=== PATIENT | male | born 1980 | race Caucasian/White ===

== ENCOUNTER 2021-04-29 14:13 | Outpatient (CLI) | payer BC, SELFPAY ==
--- NOTE | 2021-04-29 14:24 | US_ITS ---
WS: [id number] TESTICULAR ULTRASOUND HISTORY: UNDESCENDED TESTICLE/PELVIC PAIN IN MALE, remote injury LEFT testicle. COMPARISON: None available. TECHNIQUE: Real-time and color Doppler imaging or utilized to perform a testicular ultrasound. Right testicle: 5.0 cm x 2.9 cm x 2.3 cm. Normal size and echogenicity. No mass or torsion. Normal color Doppler is present throughout. Systolic and diastolic velocities are both present. No significant hydrocele. Right epididymis: Simple cysts associated with the RIGHT epididymis measures 0.9 x 1.7 x 1.4 cm. No i ncreased vascularity. Left testicle: 3.9 cm x 3.0 cm x 1.4 cm. Small atrophic testicle is within the inguinal canal. There is no significant amount of vascularity t he testicle. Very small amount of peripheral flow is identified. There is no edema. This is an abnorm al testicle and correlates with prior trauma and history. No significant hydrocele. Left epididymis: Normal epididymis with no increased vascularity. US/US scrotum [id number] IMPRESSION: 1. Small LEFT testicle is within the inguinal canal. Very limited color Dopple r. Patient describes remote injury to the LEFT testicle. Do not believe this is an acute torsion. There is no edema or enlargement of the testicle. Changes wi thin the LEFT testicle probably due to prior injury with prior ischemic event. 2. Normal RIGHT testicle. 3. Small RIGHT epididymal cyst.
== END 2021-04-29 14:14 | disposition home or self-care (01) ==
PROVIDERS: PCP Registered Nurse; Visit Provider Registered Nurse
DX: Q53.9 Undescended testicle, unspecified (principal); N50.3 Cyst of epididymis
CPT/HCPCS: 76870

== ENCOUNTER → 2021-05-30 07:50 | Outpatient (BNVA) | payer BC, SELFPAY | PROVIDERS: PCP Registered Nurse; Visit Provider Urology | DX: Q53.112 Unilateral inguinal testis (principal); Z20.822 Contact with and (suspected) exposure to COVID-19 | CPT/HCPCS: 87635 ==

== ENCOUNTER 2021-06-05 13:05 | Day surgery (SDC) | payer BC, SELFPAY ==
[2021-06-04 12:02] VITALS: BMI 25.4
[2021-06-05] VITALS (10 sets, daily range): BP systolic 133–154; BP diastolic 77–91; PULSE 62–78; RESP 14–17; TEMP 36.5–37.1; O2SAT 96–99
[2021-06-05] MEDS: sodium chloride 0.9% 1,000 ML 30 ML IV (14:30)
[2021-06-05] MEDS: vancomycin 1,000 MG in sodium chloride 0.9% 250 ML 250 MG IV (15:22)
--- NOTE | 2021-06-05 15:22 | P.OP_ITS ---
Operative Report Date of procedure: June 05, 2021 Pre-op Diagnosis: Left inguinal testicle Post-op diagnosis: same Procedure Done: 1. Left inguinal orchiectomy Specimens removed/disposition: Left testicle Pathology: Left testicle Surgeon: Steff Anesthesia: General Estimated blood loss: Less than 10 cc Urine output: Not measured Complications: None Findings: Testicle in the superficial inguinal pouch. The inguinal canal did not have to be formally opened. Condition: stable Disposition: PACU Brief History: Rigo is a 40-year-old white male with a very interesting history of a traumatic injury with multiple orthopedic injuries as well as trauma to the genital area while bull riding at a much younger age. After beginning recovery from his injuries he noticed that his left testicle which had been clearly in his scrotum up to the point was now in the inguinal canal. He was unable to manually push it down into the scrotum and it is remained in that position ever since. He does noticed historically increased discomfort with bending and twisting and leaning over but that discomfort has increased. Ultrasound was performed to confirm the location of the testicle with no other gross pathology identified. He requested orchiectomy. Procedure: After routine preoperative evaluation examination and obtaining of informed consent he was taken to the operating suite on 06/05/2021 where general anesthesia was administered without difficulty after appropriate timeout was performed, SCDs confirmed to be functioning, preoperative antibiotics administered, beta-lisa code called confirmed. Prepped and draped in usual sterile fashion in supine position paying careful attention to avoiding pressure points. A LEFT inguinal incision was made in the skin crease and incision was taken down through skin and subcutaneous tissue and the testicle was identified in the area of the superficial inguinal pouch. It was below the external ring. The tunica vaginalis was opened and the testicle was delivered. The cord was exposed with retraction and dissected free from the surrounding tissues. It was into 2 packets and both were clamped, divided, and doubly ligated. There is no evidence of a hernia. Testicle sent for pathologic evaluation. Wound was irrigated meticulous hemostasis was obtained via electrocautery. Wound was closed with 3-0 Vicryl for the subcutaneous fat layer and then the skin edges were approximated with 4- 0 Vicryl subcuticular fashion. Dermabond was applied. The wound was infiltrated with 0.5% Marcaine prior to closure. A ilioinguinal nerve block was performed as well. After the Dermabond dried a sterile dressing was applied. Tolerated procedure well without complications and was awakened in the operating room and returned to the recovery room in stable condition. PLANS: 1. Anticipate discharge from outpatient surgery 2. Follow-up in about 6 weeks for postop check
--- NOTE | 2021-06-05 15:22 | W.PM.OPSUD ---
Surgery/Procedure H&P Update DATE OF PROCEDURE: June 05, 2021 DATE H&P PERFORMED: 05/27/21 H&P UPDATE INFORMATION: I have reviewed H&P completed within last 30 days, I have examined patient prior to procedure, No changes to prior documentation and [place] [facility] [place] PREOP DIAGNOSIS: Left inguinal testicle PLANNED PROCEDURE: Operation Date: 06/05/21 14:30 Proposed Procedures p Inguinal Orchiectomy 81022 Q53.112(Left) - Rick Artis MD
[2021-06-05] MEDS: fentaNYL 50 mcg/mL INJ 2mL IVP ×2 (16:26→16:31)
--- NOTE | 2021-06-05 16:30 | ANE.PACU2 ---
Inpatient post-anesthesia follow up: Airway intact: Yes Vital signs: Temperature 98.8 F Pulse Rate 73 Respiratory Rate 16 Blood Pressure 143/90 Pulse Oximetry 97 Oxygen Delivery Me thod Room Air Oxygen Flow Rate Fraction of Inspir ed Oxygen Hydration adequate: Yes Nausea and vomiting: No Pain level: 2 Mental status: Baseline
== END 2021-06-05 17:35 | disposition home or self-care (01) ==
PROVIDERS: PCP Registered Nurse; Visit Provider Urology
PROC: (CPT 54520; principal; 2021-06-05 14:30)
DX: Q53.112 Unilateral inguinal testis (principal); Z87.891 Personal history of nicotine dependence
CPT/HCPCS: 54520; 88304; J1100; J1170; J2405; J2704; J3010; J3370; J3490; J7030; J7050

== ENCOUNTER 2022-06-24 10:10 | Emergency (ER) | payer BC, SELFPAY ==
[2022-06-24 10:37] VITALS: BP 156/70; PULSE 52; RESP 14; TEMP 36.9; O2SAT 97; BMI 24.3
--- NOTE | 2022-06-24 11:27 | ED_ITS ---
HPI - Eye Problem General: Chief complaint: Eye Problems Stated complaint: Bump on eye Time Seen by Provider: 06/24/22 11:27 History of Present Illness: Mr. Das is a 41-year-old male without reported significant past medical history presents to the emergency department due to swelling of the right eyelid. He reports noticing a bump a few days ago without known mechanism and starting yesterday had increased swelling. He denies associated visual symptoms, eye pain, or any other generalized symptoms. Intensity is mild. Course has persisted. No other specific changes in health, exacerbating, or alleviating factors identified. Onset (ago): day(s) Location: right eye Mechanism: none Associated symptoms: Reports no associated symptoms Review of Systems General: Reports: 10 or more systems reviewed and unremarkable except in HPI and below PFSH ED PFSH: Family History Other CAD (coronary artery disease) Cancer Diabetes Social History Smoking and tobacco status: former smoker Alcohol intake: never Marital status: Current occupational status: employed Physical Exam Const: COMMON NORMALS: alert GENERAL APPEARANCE: cooperative and well developed HENMT: COMMON NORMALS: normocephalic and atraumatic HEAD & SCALP: normocephalic and atraumatic Eye: COMMON NORMALS: Equal, round and reactive pupils present, EOMs intact bilaterally, conjunctivae normal and no scleral icterus VISUAL ACUITY: Yes acuity normal CONJUNCTIVA: Yes conjunctivae normal SCLERA: sclerae normal PUPIL: Yes Equal, round and reactive pupils present OTHER: small papule and region of erythema/induration of right upper eyelid Neck/C-Spine: COMMON NORMALS: supple GENERAL: Yes trachea midline Resp: COMMON NORMALS: clear to auscultation bilaterally EFFORT & INSPECTION: Yes able to speak in complete sentences AUSCULTATION: clear to auscultation bilaterally Cardio: COMMON NORMALS: regular rate and regular rhythm RATE: regular rate RHYTHM: regular rhythm GI: COMMON NORMALS: Soft to palpation PALPATION: Yes Soft to palpation and No Tenderness to palpation present (GI) PERCUSSION: normal to percussion Extremity: GENERAL: Yes normal exam except as noted and No edema Neuro: COMMON NORMALS: moves all extremities SENSORIUM/ORIENTATION: Yes alert and No Orientation impaired Psych: COMMON NORMALS: mental status grossly normal and Normal thought process present THOUGHT PROCESS: Normal thought process present Course Vital Signs: Vital signs: Vital Signs Temperature 98.5 F 06/24/22 10:37 Pulse Rate 52 L 06/24/22 11:58 Respiratory Rate 14 06/24/22 10:37 Blood Pressure 156/70 06/24/22 10:37 Pulse Oximetry 98 06/24/22 11:58 Oxygen Delivery Me thod 06/24/22 11:58 MDM - Eye Problem Medical Decision Making 41-year-old gentleman nondiabetic presenting with swelling of right eyelid. No associated evidence of ocular or deep infection on exam. Ddxlt-oz-[id number] ultrasound reveals very small fluid collection however given location and size I do not believe that this is amenable to incision and drainage. Plan to treat for local cellulitis. The results of ED evaluation were discussed with the patient including prescriptions and/or symptomatic cares (if applicable) including appropriate and responsible use, followup plan, and return precautions. The patient verbalized understanding and felt safe for discharge. Medical Records I reviewed the patient's medical records. Lab Data I reviewed the patient's lab results. Discharge Plan Discharge Patient Disposition: Home Clinical Impression: Cellulitis of upper eyelid Condition: Stable Prescriptions: New clindamycin HCl 300 mg capsule 300 mg PO Q8H 10 Days Qty: 30 0RF No Action hydrocodone-acetaminophen 5-325 mg tablet 1 tab PO Q8H PRN (Reason: pain) Qty: 15 0RF Discharge Orders: Discharge ED (Routine); Ordered 06/24/22 Ordered By: Andrew Patino Referrals: Hyacinth Shell [Primary Care Provider] - Discharge Diet: Usual diet Discharge Activity: Increase activity as tolerated Patient Instructions: Cellulitis (ED) Activity Restrictions/Additional Instructions: Thank you for visiting the emergency department. You were seen and evaluated for eyelid concern. Most likely cause of your symptoms is superficial fluid collection and soft tissue infection. This will be treated with antibiotics. Additionally please use warm compresses 4 times daily. Please follow-up with a primary care provider. Return to the emergency department for worsening symptoms, any changes in vision or associated eye pain, or anything else that you are concerned about a feel needs emergency department evaluation. Coding Level of Care Code ED Assault Amphibious Vehicle Officer for [facility] Exam Comprehensive
[2022-06-24 11:58] VITALS: PULSE 52; O2SAT 98
== END 2022-06-24 12:52 | disposition home or self-care (01) ==
PROVIDERS: Emergency Provider Emergency Medicine; PCP Registered Nurse
DX: H00.031 Abscess of right upper eyelid (principal)
CPT/HCPCS: 99283

== ENCOUNTER 2023-12-11 09:39 | Observation (INO) | payer SELFPAY ==
[2023-12-11] VITALS (23 sets, daily range): BP systolic 98–153; BP diastolic 50–99; PULSE 42–70; RESP 12–18; TEMP 36.4–36.8; O2SAT 93–100
--- NOTE | 2023-12-11 09:55 | PC.PHAR ---
pt states takes no prescription medications or otc medications
--- NOTE | 2023-12-11 10:19 | CTR_ITS ---
PROCEDURE INFORMATION: Exam: CT Pelvis With Contrast Exam date and time: 12/11/2023 10:50 AM Age: 42 years old Clinical indication: Other: R buttock abscess; Prior surgery; Surgery date: 6+ months; Surgery type: Scrotum TECHNIQUE: Imaging protocol: Computed tomography of the pelvis with contrast. Radiation optimization: All CT scans at this facility use at least one of these dose optimization techniques: automated exposure control; mA and/or kV adjustment per patient size (includes targeted exams where dose is matched to clinical indication); or iterative reconstruction. Contrast material: OMNI 350; Contrast volume: 100 ml; Contrast route: INTRAVENOUS (IV); COMPARISON: US scrotum [id number] 04/29/2021 2:46 PM RADIATION DOSE METRICS: Total DLP (mGy-cm): 497.91 FINDINGS: Stomach and bowel: Visualized small bowel and colon are unremarkable. Appendix: Normal appendix. Intraperitoneal space: Unremarkable. No free air. No significant fluid collection. Lymph nodes: Enlarged right inguinal lymph nodes measuring up to 1.2 centimeters. 1 centimeter enlarged right external iliac chain lymph nodes. Urinary bladder: No bladder abnormality allowing for degree of filling. Reproductive: Enlarged prostate with nodular indentation of the bladder base. Bones/joints: Unremarkable. No acute fracture. No dislocation. Soft tissues: Right subcutaneous collection superficial to the medial gluteal musculature measuring 4.[address]/CT pelvis w con* [id number] IMPRESSION: 1. Right subcutaneous collection superficial to the medial gluteal musculature measuring 4.5 x 3.9 centimeters. 2. Prostatomegaly with nodular indentation of the bladder base. Defer to clinical and laboratory assessment/PSA levels.
--- NOTE | 2023-12-11 10:30 | ED_ITS ---
HPI - Skin/Abscess/Foreign Bdy 2 General: Chief complaint: Skin/Abscess/Foreign Body Stated complaint: skin issue on righ side butt Time Seen by Provider: 12/11/23 09:44 Source: patient Mode of arrival: ambulatory History of Present Illness: 42-year-old male presents emergency room complaining of a abscess on the right buttocks been present for about a month he is tried various pbzm-xhj-ijaudzb remedies hot packs topical ointments to try to get it to come to a point and drained spontaneously nothing is work. It is exquisitely tender. He has not had any fevers sweats or chills he has had these in the past but he states usually the resolve spontaneously and he has not needed any kind of significant intervention. Patient is not diabetic. MD complaint: abscess/boil Onset (ago): month(s) (1) Severity: severe Quality: sharp Pain Consistency: constant Relieving factors: none Exacerbating factors: none Associated symptoms: Deny arthralgias, chills, cough, fever(s), itching, myalgias, nausea, rigidity, short of breath or vomiting Treatments prior to arrival: OTC topical medication Review of Systems 2 Const: Denies: fever(s) or chills Card: Denies: chest pain Resp: Denies: dyspnea GI: Denies: abdominal pain, nausea or vomiting : Denies: dysuria, urinary frequency or urinary urgency Musc: Denies: neck pain or back pain Skin/Breast: Reports: rash, erythema and changing lesions PFSH ED 2 PFSH: Family History Other CAD (coronary artery disease) Cancer Diabetes Social History Smoking and tobacco/nicotine status: former use of tobacco/nicotine Alcohol intake: never Marital status: Current occupational status: employed Physical Exam 2 Const: GENERAL APPEARANCE: cooperative and comfortable O RIENTATION/CONSCIOUSNESS: Yes awake, Yes oriented to person, Yes oriented to place and Yes oriented to time HENMT: COMMON NORMALS: normocephalic, atraumatic and hearing grossly normal bilaterally HEAD & SCALP: normocephalic and atraumatic Resp: COMMON NORMALS: normal respiratory effort, No retractions, No use of accessory muscles and clear to auscultation bilaterally AUSCULTATION: clear to auscultation bilaterally Cardio: COMMON NORMALS: regular rate, regular rhythm and No murmurs present (Cardio) RATE: regular rate RHYTHM: regular rhythm GI: COMMON NORMALS: Soft to palpation and No hepatosplenomegaly present A USCULTATION: Yes normoactive bowel sounds PALPATION: Yes Soft to palpation, No Tenderness to palpation present (GI), No Guarding due to palpation present (GI) and Yes No hepatosplenomegaly present Extremity: COMMON NORMALS: normal to inspection, capillary refill normal, no clubbing, cyanosis or edema, no calf tenderness and no pedal edema Neuro: SENSORIUM/ORIENTATION: Yes oriented to person, Yes oriented to place and Yes oriented to time Skin: NARRATIVE SKIN EXAM: Inferior aspect of the right buttock near the gluteal cleft there is a large abscess approximately 10 to 12 x 15 cm indurated exquisitely tender no pointing no active drainage overlying skin is red and inflamed and indurated Course 2 Vital Signs: Vital signs: Vital Signs Temperature 98.2 F 12/11/23 09:44 Pulse Rate 70 12/11/23 09:44 Respiratory Rate 18 12/11/23 10:42 Blood Pressure 153/99 12/11/23 09:44 Pulse Oximetry 98 12/11/23 10:42 Oxygen Delivery Me thod Room Air 12/11/23 09:44 MDM - Skin/Abscess/Foreign Bdy Medicial Decision Making Sizable skin abscess with severe pain discomfort. Is been present for 1 month. Make you require incision and drainage in the OR setting to adequately clean and be tolerable for him. Discussed with Dr. Gill. He will admit. Patient was given vancomycin Jairo asks that we also start Cipro. Will keep patient n.p.o. pain and nausea medications given Differential Diagnosis Likely abscess of skin or subcutaneous tissue Medical Records I reviewed the patient's medical records. Lab Data I reviewed the patient's lab results. 12/11/23 10:37 12/11/23 10:[address] 12/11/23 10:19 IMPRESSION: 1. Right subcutaneous collection superficial to the medial gluteal musculature measuring 4.5 x 3.9 centimeters. 2. Prostatomegaly with nodular indentation of the bladder base. Defer to clinical and laboratory assessment/PSA levels. Laboratory Results WBC 8.40 10^3/uL (3.29-11.43) 12/11/23 10:37 RBC 4.69 10^6/uL (3.85-5.65) 12/11/23 10:37 Hgb 14.50 g/dL (11.27-16.99) 12/11/23 10:37 Hct 43.2 % (37-53) 12/11/23 10:37 MCV 92.1 fl (82-101) 12/11/23 10:37 MCH 30.9 pg (27-33) 12/11/23 10:37 MCHC 33.6 g/dL (30-55) 12/11/23 10:37 RDW 11.9 % (12.1-15.1) L 12/11/23 10:37 Plt Count 321 10^3/cmm (157-399) 12/11/23 10:37 MPV 8.7 fL (7.4-10.4) 12/11/23 10:37 Neut % (Auto) 72.8 % 12/11/23 10:37 Lymph % (Auto) 19.0 % 12/11/23 10:37 [place] % (Auto) 6.8 % 12/11/23 10:37 Eos % (Auto) 0.8 % 12/11/23 10:37 Baso % (Auto) 0.4 % 12/11/23 10:37 Neut # (Auto) 6.11 10^3/uL (1.8-7.7) 12/11/23 10:37 Lymph # (Auto) 1.6 10^3/uL (0.8-4.8) 12/11/23 10:37 [place] # (Auto) 0.6 10^3/uL (0.2-0.9) 12/11/23 10:37 Eos # (Auto) 0.1 10^3/uL (0.0-0.8) 12/11/23 10:37 Baso # (Auto) 0.0 10^3/uL (0.0-0.1) 12/11/23 10:37 Nucleated RBC % (auto) 0 % 12/11/23 10:37 Nucleated RBCs # 0.0 /100WBC 12/11/23 10:37 Sodium 136 mmol/L (136-145) 12/11/23 10:37 Potassium 3.9 mmol/L (3.5-5.1) 12/11/23 10:37 Chloride 100 mmol/L (98-107) 12/11/23 10:37 Carbon Dioxide 25 mmol/L (22-29) 12/11/23 10:37 Anion Gap 14.9 (5-19) 12/11/23 10:37 BUN 11 mg/dL (6-20) 12/11/23 10:37 Creatinine 0.8 mg/dL (0.7-1.2) 12/11/23 10:37 GFR Calculation 106.0 mL/min (90-130) 12/11/23 10:37 Glucose 126 mg/dL (65-115) H 12/11/23 10:37 Calculated Osmolality 283 mOsm/kg (285-295) L 12/11/23 10:37 Calcium 8.9 mg/dL (8.5-10.5) 12/11/23 10:37 Total Bilirubin 0.5 mg/dL (0.15-1.2) 12/11/23 10:37 AST 20 U/L (0-40) 12/11/23 10:37 ALT 20 U/L (0-41) 12/11/23 10:37 Alkaline Phosphatase 93 U/L (40-130) 12/11/23 10:37 Total Protein 7.9 g/dL (6.6-8.7) 12/11/23 10:37 Albumin 4.2 g/dL (3.5-5.2) 12/11/23 10:37 Globulin 3.7 g/dL (1.3-4.6) 12/11/23 10:37 All radiology interpretation(s) finalized by discharge Discharge Plan Discharge Patient Disposition: Placed in Observation Clinical Impression: Abscess of skin or subcutaneous tissue Condition: Stable Prescriptions: No Action No Known Home Medications Referrals: Hyacinth Shell [Primary Care Provider] - Coding Level of Care Code ED Braze Operator for [facility]
[2023-12-11] MEDS: morphine 4 mg/mL SDV 1 mL IVP ×3 (10:42→15:32)
[2023-12-11] MEDS: ondansetron 2 mg/ML SDV 2 mL 4 MG IVP ×2 (10:42→21:13)
[2023-12-11 10:47] LABS: Basophils % 0.4 %; Eosinophils # 0.1 10^3/uL (0.0-0.8); Eosinophils % 0.8 %; Hematocrit 43.2 % (37-53); Lymphocytes # 1.6 10^3/uL (0.8-4.8); Mean Corpuscular HGB Conc 33.6 g/dL (30-55); Mean Corpuscular Hemoglobin 30.9 pg (27-33); Mean Corpuscular Volume 92.1 fl (82-101); Mean Platelet Volume 8.7 fL (7.4-10.4); Monocytes # 0.6 10^3/uL (0.2-0.9); Monocytes % 6.8 %; Neutrophils # 6.11 10^3/uL (1.8-7.7); Neutrophils % 72.8 %; Nucleated Red Blood Cells % 0 %; Platelet Count 321 10^3/cmm (157-399); Red Blood Count 4.69 10^6/uL (3.85-5.65); Red Cell Distribution Width 11.9 % (12.1-15.1)
[2023-12-11] MEDS: iohexol 350 mg/mL 500 mL Btl (per mL) IV (10:54)
[2023-12-11] MEDS: vancomycin 1,000 MG in sodium chloride 0.9% 250 ML 250 MG IV (11:01)
[2023-12-11 11:09] LABS: Alanine Aminotransferase 20 U/L (0-41); Albumin Level 4.2 g/dL (3.5-5.2); Alkaline Phosphatase 93 U/L (40-130); Anion Gap 14.9 (5-19); Aspartate Amino Transferase 20 U/L (0-40); Blood Urea Nitrogen 11 mg/dL (6-20); Calcium 8.9 mg/dL (8.5-10.5); Carbon Dioxide 25 mmol/L (22-29); Chloride 100 mmol/L (98-107); Creatinine Clr Calc Pharmacy 161.2168; Globulin 3.7 g/dL (1.3-4.6); Glucose 126 mg/dL (65-115); Osmolality Calculated 283 mOsm/kg (285-295); Potassium 3.9 mmol/L (3.5-5.1); Sodium 136 mmol/L (136-145); Total Bilirubin 0.5 mg/dL (0.15-1.2); Total Protein 7.9 g/dL (6.6-8.7)
[2023-12-11] MEDS: ciprofloxacin 400 MG/200 ML PREMIX 200 MG IV (12:15)
[2023-12-11] MEDS: sodium chloride 0.9% 1,000 ML 100 ML IV (14:40)
--- NOTE | 2023-12-11 15:45 | P.ANESASSM_ITS ---
Pre-Anesthetic Assessment Height/Weight: Height 1.98 m Weight 99.79 kg Temp Pulse Resp BP Pulse Ox O2 Del Method 98.2 F 51 L 16 115/50 93 Room Air 12/11/23 09:44 12/11/23 12:50 12/11/23 15:32 12/11/23 12:50 12/11/23 12:50 12/11/23 13:11 Operation Date: 12/11/23 17:40 Proposed Procedures p Incision And Drainage-perirectal abcess(Not Applicable) - Haja Gill DO Familial anesthetic complications: None Was Beta Autumn taken within 24 hours: N/A Was Clonidine taken within 24 hours: N/A Last intake: 0900 Redbull and black coffee Social No alcohol and No tobacco Exam alert, oriented x 3, clear to auscultation bilaterally and regular rate & rhythm Airway Mallampati: Class I Dentition: chipped ( my teeth got knocked out by a bull ) Anesthetic Plan ASA status: 1 Anesthesia: General Risk of > 500 ml blood loss (7ml/kg in children): No Medications/Allergies Home Medications Medication Instructions Recorded Confirmed Last Taken Type No Known Home Medications 12/11/23 12/11/23 Unknown History Allergies Allergy/AdvReac Type Severity Reaction Status Date / Time Penicillins Allergy Severe ALGY-Anaphy Verified 12/11/23 09:54 laxis Current Medications Generic Name Dose Route Start Last Admin Trade Name Freq PRN Reason Stop Dose Admin Sodium Chloride 1,000 mls @ 100 mls/hr 12/11/23 13:03 12/11/23 14:40 Sodium Chloride 0.9% IV 100 mls/hr .Q10H TOMMY Administration Morphine Sulfate 4 mg 12/11/23 13:03 12/11/23 15:32 Morphine 4 Mg/Ml Sdv 1 Ml IVP 4 mg Q4H PRN Administration SEVERE PAIN PFSH Anesthesia Family History Other CAD (coronary artery disease) Cancer Diabetes Social History Smoking and tobacco/nicotine status: former use of tobacco/nicotine Alcohol intake: never Marital status: Current occupational status: employed Data Anesthesia 12/11/23 10:37 12/11/23 10:37 Short CBC 12/11/23 Range/Units 10:37 WBC 8.40 (3.29-11.43) 10^3/uL Hgb 14.50 (11.27-16.99) g/dL Hct 43.2 (37-53) % MCV 92.1 (82-101) fl Plt Count 321 (157-399) 10^3/cmm Neut % (Auto) 72.8 % Neut # (Auto) 6.11 (1.8-7.7) 10^3/uL BMP 12/11/23 10:37 Sodium 136 Potassium 3.9 Chloride 100 Carbon Dioxide 25 BUN 11 Creatinine 0.8 Glucose 126 H Calcium 8.9 Liver Function 12/11/23 Range/Units 10:37 Total Bilirubin 0.5 (0.15-1.2) mg/dL AST 20 (0-40) U/L ALT 20 (0-41) U/L Alkaline Phosphatase 93 (40-130) U/L Albumin 4.2 (3.5-5.2) g/dL Microbiology 12/11/23 10:34 Blood Culture - Preliminary Blood SPECIMEN COLLECTED 12/11/23 10:37 Blood Culture - Preliminary Blood SPECIMEN COLLECTED Cardiac Studies: 2 No Data to Display
--- NOTE | 2023-12-11 15:54 | P.HP_ITS ---
Providers/Chief Complaint 2 Admitting Physician: Haja Gill DO Primary Care Provider: Hyacinth Shell Chief Complaint: skin issue on righ side butt History of Present Illness Rigo Das is a 42 year old male who presents to the hospital with history of perirectal abscess. He reports that his for 5 days in the past, some of which required incision and drainage. He has sharp intense perirectal pain that is mostly located on the right radiates to his groin. Palpation makes pain worse. Nothing makes pain better. He denies any fever, chills, nausea, emesis, diarrhea, constipation, hematochezia and/or melena. Review of Systems 2 General: Reports: 10 or more systems reviewed and unremarkable except in HPI and below Medications/Allergies Home Medications Medication Instructions Recorded Confirmed Last Taken Type No Known Home Medications 12/11/23 12/11/23 Unknown History Allergies Allergy/AdvReac Type Severity Reaction Status Date / Time Penicillins Allergy Severe ALGY-Anaphy Verified 12/11/23 09:54 laxis PFSH Acute 2 PFSH: Family History Other CAD (coronary artery disease) Cancer Diabetes Social History Smoking and tobacco/nicotine status: former use of tobacco/nicotine Alcohol intake: never Marital status: Current occupational status: employed Vitals/I&O/Wt Last Vital Signs Temp 98.2 F 12/11/23 09:44 Pulse 51 L 12/11/23 12:50 Resp 16 12/11/23 15:32 BP 115/50 12/11/23 12:50 Pulse Ox 93 12/11/23 12:50 O2 Del Method Room Air 12/11/23 13:11 12/11/23 12/11/23 12/11/23 06:59 14:59 22:59 Intake Total 450 / 450 Output Total 350 / 350 Balance 100 / 100 Weight last 48 hrs Weight 220 lb Physical Exam 2 Narrative: General : Patient is well developed , no acute distress, oriented x3 Head : Normal cephalic, a-traumatic. Ears : Pinnae and external canal are normal. Hearing is normal. Eyes : PERRLA, Sclera and injection are normal. No conjunctival discharge. Nose : Mucous membranes are without erythema. Throat : buccal mucosa is normal, gums are without significant recession or hypertrophy. Lungs : Equal chest rise bilaterally, no use of accessory muscles, trachea is midline. Cor : Rate and rhythm are normal. Abdomen : Soft, ND, NT, no g/r/m Skin: There is erythema, fluctuance and induration just right of the anus Extremities : No edema, no cyanosis or clubbing, dorsalis pedis pulses are present bilaterally, non-tender to palpation of calves. Upper extremities are normal bilaterally. Back : non-tender to palpation, no CVA tenderness. Neuro : CN II - XII intact, Upper and lower extremities have equal and full strength Data 12/11/23 10:37 12/11/23 10:37 Micro: Microbiology 12/11/23 10:34 Blood Culture - Preliminary Blood SPECIMEN COLLECTED 12/11/23 10:37 Blood Culture - Preliminary Blood SPECIMEN COLLECTED A&P Assessment and plan (1) Perirectal abscess: Plan Incision and drainage of perirectal abscess Exam under anesthesia The risks and benefits of the procedure, including but not limited to, bleeding, infection, scar, numbness, pain, recurrence, possible both fistula further surgery, incontinence of stool and/or flatus, were explained to the patient. He is understanding of the risks and wishes to proceed. Attestations 2 Medical Necessity Statement*: Patient requires at least 1 night in the hospital for IV antibiotics and dressing change in the morning Coding Level of Care Code 80827 Diagnoses Perirectal abscess K61.1
[2023-12-11] MEDS: sodium chloride 0.9% 1,000 ML 30 ML IV (16:08)
--- NOTE | 2023-12-11 17:02 | PM.OP ---
Operative Report Date of procedure: December 11, 2023 Pre-op diagnosis: Perirectal abscess Post-op diagnosis: Perirectal abscess Perianal fistula Procedure done: Incision and drainage of perirectal abscess Examination under anesthesia Implants: 1 inch iodoform packing gauze Specimens removed/disposition: Cultures Surgeon: Haja Gill DO Anesthesia: General and Local Complications: None apparent Brief History: This very pleasant 42-year-old gentleman who comes into the hospital with recurrent perirectal abscess. Incision and drainage with examination under anesthesia was indicated. The risk and benefits were explained and documented. Procedure: Patient was wheeled operative room on the [facility] in the supine position. General anesthesia with LMA was achieved by department anesthesia. The patient was then put into the right lateral decubitus position. The buttocks and anus were inspected prepped and draped in usual sterile fashion. A timeout was performed. All present were in agreement. A 10 blade scalpel was used to make a 2 cm incision over the area of most fluctuance just right of the anus. Copious amounts of foul-smelling purulence was drained. Abscess cavities were probed and loculations were broken with hemostats. Cultures were obtained. Abscess cavity was then irrigated with normal saline. An examination under anesthesia was then performed. There appeared to be a fistula right of the anterior midline. Wound was then packed with 1 inch iodoform packing gauze. Sterile bandage was applied. Patient tolerated procedure well.
[2023-12-11] MEDS: fentaNYL 50 mcg/mL INJ 2mL IVP (17:21)
--- NOTE | 2023-12-11 17:30 | ANE.PACU2 ---
Inpatient post-anesthesia follow up: Airway intact: Yes Vital signs: Temperature 98 F Pulse Rate 53 Respiratory Rate 16 Blood Pressure 107/53 Pulse Oximetry 96 Oxygen Delivery Me thod Room Air Oxygen Flow Rate 6 Fraction of Inspir ed Oxygen Hydration adequate: Yes Nausea and vomiting: No Pain level: 2 Mental status: Baseline
[2023-12-11] MEDS: clindamycin 600 MG/50 ML PREMIX 100 MG IV (18:27)
[2023-12-11] MEDS: HYDROmorphone 1 mg/mL INJ 1 mL IVP ×2 (18:28→21:35)
--- NOTE | 2023-12-11 21:17 | PC.NURSE ---
Patient refusing PO pain medication due to c/o nausea. Patient requesting IV pain medication. PRN Zofran given for nausea. Patient has bilateral SCDs on.
[2023-12-11] MEDS: HYDROcodone-acetaminophen 7.5-325 mg Tablet 1 TAB PO (23:23)
[2023-12-12] VITALS (9 sets, daily range): BP systolic 107–131; BP diastolic 53–66; PULSE 41–56; RESP 13–18; TEMP 36.3–36.6; O2SAT 95–97
[2023-12-12] MEDS: clindamycin 600 MG/50 ML PREMIX 100 MG IV ×3 (01:54→18:18)
[2023-12-12] MEDS: HYDROmorphone 1 mg/mL INJ 1 mL IVP ×4 (01:56→18:17)
[2023-12-12] MEDS: sodium chloride 0.9% 1,000 ML 100 ML IV ×2 (04:42→14:38)
[2023-12-12] MEDS: HYDROcodone-acetaminophen 7.5-325 mg Tablet 1 TAB PO ×4 (04:43→19:59)
[2023-12-12] MEDS: ondansetron 2 mg/ML SDV 2 mL 4 MG IVP ×2 (10:36→17:31)
[2023-12-12] MEDS: calcium carbonate 500 mg Chew Tablet 1000 MG PO (13:59)
[2023-12-12] MEDS: pantoprazole 40 mg SDV IVP (13:59)
--- NOTE | 2023-12-12 18:46 | P.DS_ITS ---
Discharge Providers Date of Admission: 12/11/23 11:43 Date of Discharge: December 12, 2023 Attending Provider at Admission: Haja Gill DO Attending Provider at Discharge: Haja Gill DO Primary Care Provider: Hyacinth Shell Diagnoses at Discharge Discharge Diagnosis (1) Perirectal abscess: Status: Acute Reason for Visit Reason for Visit: skin issue on righ side butt Hospital Course Hospital Course This very pleasant 42-year-old gentleman who presented to the hospital with a perirectal abscess. He underwent incision and drainage of perirectal abscess and examination under anesthesia, in which a right anterior fistula was identified. He stayed for 24 hours of IV antibiotics and was discharged home on an oral antibiotic course and with dressing change instructions and follow-up. Physical Exam Narrative: General : Patient is well developed , no acute distress, oriented x3 Head : Normal cephalic, a-traumatic. Ears : Pinnae and external canal are normal. Hearing is normal. Eyes : PERRLA, Sclera and injection are normal. No conjunctival discharge. Nose : Mucous membranes are without erythema. Throat : buccal mucosa is normal, gums are without significant recession or hypertrophy. Lungs : Equal chest rise bilaterally, no use of accessory muscles, trachea is midline. Cor : Rate and rhythm are normal. Abdomen : Soft, ND, NT, no g/r/m Extremities : No edema, no cyanosis or clubbing, dorsalis pedis pulses are present bilaterally, non-tender to palpation of calves. Upper extremities are normal bilaterally. Back : non-tender to palpation, no CVA tenderness. Neuro : CN II - XII intact, Upper and lower extremities have equal and full strength Discharge Data Studies Completed and Pending Completed Studies During Hospitalization Category Date Time Status CT pelvis w con* [id number] Stat Cat Scan 12/11/23 10:19 Completed Pending at discharge Category Date Time Status Abscess Culture and Gram Stain Routine Lab 12/11/23 16:50 Results Anaerobic Culture Routine Lab 12/11/23 16:50 Results Blood Culture Stat Lab 12/11/23 10:34 Results Radiology Impressions Pelvis CT 12/11/23 10:19 IMPRESSION: 1. Right subcutaneous collection superficial to the medial gluteal musculature measuring 4.5 x 3.9 centimeters. 2. Prostatomegaly with nodular indentation of the bladder base. Defer to clinical and laboratory assessment/PSA levels. Laboratory Results WBC 8.40 10^3/uL (3.29-11.43) 12/11/23 10:37 RBC 4.69 10^6/uL (3.85-5.65) 12/11/23 10:37 Hgb 14.50 g/dL (11.27-16.99) 12/11/23 10:37 Hct 43.2 % (37-53) 12/11/23 10:37 MCV 92.1 fl (82-101) 12/11/23 10:37 MCH 30.9 pg (27-33) 12/11/23 10:37 MCHC 33.6 g/dL (30-55) 12/11/23 10:37 RDW 11.9 % (12.1-15.1) L 12/11/23 10:37 Plt Count 321 10^3/cmm (157-399) 12/11/23 10:37 MPV 8.7 fL (7.4-10.4) 12/11/23 10:37 Neut % (Auto) 72.8 % 12/11/23 10:37 Lymph % (Auto) 19.0 % 12/11/23 10:37 Saunders % (Auto) 6.8 % 12/11/23 10:37 Eos % (Auto) 0.8 % 12/11/23 10:37 Baso % (Auto) 0.4 % 12/11/23 10:37 Neut # (Auto) 6.11 10^3/uL (1.8-7.7) 12/11/23 10:37 Lymph # (Auto) 1.6 10^3/uL (0.8-4.8) 12/11/23 10:37 Saunders # (Auto) 0.6 10^3/uL (0.2-0.9) 12/11/23 10:37 Eos # (Auto) 0.1 10^3/uL (0.0-0.8) 12/11/23 10:37 Baso # (Auto) 0.0 10^3/uL (0.0-0.1) 12/11/23 10:37 Nucleated RBC % (auto) 0 % 12/11/23 10:37 Nucleated RBCs # 0.0 /100WBC 12/11/23 10:37 Sodium 136 mmol/L (136-145) 12/11/23 10:37 Potassium 3.9 mmol/L (3.5-5.1) 12/11/23 10:37 Chloride 100 mmol/L (98-107) 12/11/23 10:37 Carbon Dioxide 25 mmol/L (22-29) 12/11/23 10:37 Anion Gap 14.9 (5-19) 12/11/23 10:37 BUN 11 mg/dL (6-20) 12/11/23 10:37 Creatinine 0.8 mg/dL (0.7-1.2) 12/11/23 10:37 GFR Calculation 106.0 mL/min (90-130) 12/11/23 10:37 Glucose 126 mg/dL (65-115) H 12/11/23 10:37 Calculated Osmolality 283 mOsm/kg (285-295) L 12/11/23 10:37 Calcium 8.9 mg/dL (8.5-10.5) 12/11/23 10:37 Total Bilirubin 0.5 mg/dL (0.15-1.2) 12/11/23 10:37 AST 20 U/L (0-40) 12/11/23 10:37 ALT 20 U/L (0-41) 12/11/23 10:37 Alkaline Phosphatase 93 U/L (40-130) 12/11/23 10:37 Total Protein 7.9 g/dL (6.6-8.7) 12/11/23 10:37 Albumin 4.2 g/dL (3.5-5.2) 12/11/23 10:37 Globulin 3.7 g/dL (1.3-4.6) 12/11/23 10:37 Procedures Performed Incision and drainage of perirectal abscess Examination under anesthesia Vitals Last Vital Signs Temp 98 F 12/12/23 16:00 Pulse 53 L 12/12/23 16:00 Resp 17 12/12/23 18:17 BP 107/53 12/12/23 16:00 Pulse Ox 96 12/12/23 16:00 O2 Del Method Room Air 12/12/23 07:37 O2 Flow Rate 6 12/11/23 17:09 Discharge Plan Discharge Patient Disposition: Home Condition: Stable Prescriptions: New clindamycin HCl 300 mg capsule 300 mg PO Q6H 10 Days Qty: 40 0RF hydrocodone-acetaminophen 7.5-325 mg tablet 1 tab PO Q6H PRN (Reason: pain) Qty: 20 0RF Colace 100 mg capsule 100 mg PO BID Qty: 14 0RF Discharge Orders: Discharge Order (Routine); Ordered 12/12/23 Ordered By: Haja Gill Referrals: Hyacinth Shell [Primary Care Provider] - 4-7 days Haja Gill DO [Physician] - 2 weeks Discharge Diet: Advance as tolerated Discharge Activity: Resume usual activity Patient Instructions: Opioid Safety Activity Restrictions/Additional Instructions: Take a dressing and shower daily. Clean with soap and water and shower. Daily dressing with half-inch plain packing gauze covered by 4 x 4 gauze and tape Discharge Attestations Time Spent in Discharge Care*: less than 30 min Quality Metrics Clinical Quality Measures [ No reported AMI, CVA or VTE this stay] Coding Level of Care Code Acute Code for Chg Fwd Diagnoses Perirectal abscess K61.1
[2023-12-12] MEDS: HYDROcodone-acetaminophen 10-325 mg Tablet 1 TAB PO (19:59)
[2023-12-12] MEDS: clindamycin 150 mg Capsule 300 MG PO (19:59)
--- NOTE | 2023-12-12 20:08 | PC.NURSE ---
Pt and family were educated upon discharge. All questions and concerns addressed. Extra supplies were give to patient to pack wound until pt can see provider at next appointment. All forms signed. IV was removed. Administered hydrocodone and antibiotic to patient before discharge. Per Dr. Gill's orders, sent 1 tablet of hydrocodone 10mg with patient to take later tonight since there were no pharmacies open when patient was discharged. Pt and family verbalized understanding and pt walked out of facility with family.
== END 2023-12-12 20:05 | disposition home or self-care (01) ==
LOC: ER 12:04 → MEDSURG 12:42
PROVIDERS: Admitting Provider Surgery; Emergency Provider Family Medicine; PCP Registered Nurse; Visit Provider Surgery
PROC: (CPT 46040; principal; 2023-12-11 17:30)
PROC: (CPT 46040; 2023-12-11 17:30)
DX: K61.1 Rectal abscess (principal); Z87.891 Personal history of nicotine dependence
CPT/HCPCS: 46040; 72193; 80053; 85025; 87040; 87070; 87075; 87077; 87186; 87205; 96365; 96367; 96375; 96376; 99285; C9113; G0378; J0744; J1100; J1170; J2250; J2270; J2405; J2704; J3010; J3370; J3490; J7030; J7050; Q9967